=== PATIENT | male | born 1945 ===

== ENCOUNTER 2019-09-20 18:52 | Inpatient (IN) | payer MEDICARE, MEDICAID, SELFPAY ==
[2019-09-20 12:15] VITALS: BP 169/93; PULSE 101; RESP 18; TEMP 36.3; O2SAT 100
[2019-09-20 13:27] VITALS: BMI 33.1
[2019-09-20 13:30] VITALS: PULSE 80
[2019-09-20] MEDS: SODIUM CHLORIDE 0.9% IV 1,000 ML 40 ML IV CONT (13:31)
[2019-09-20 13:32] LABS: Basophils Percent Auto 0.4 % (0.2-1.2); Eosinophils Absolute Auto 0.1 K/mm3 (0-0.3); Eosinophils Percent Auto 1.5 % (0-4.4); Hematocrit 39.7 % (42.0-52.0); Hemoglobin 12.3 g/dL (14.0-18.0); Immature Granulocyte Absolute 0.01 K/mm3 (0.00-0.031); Immature Granulocyte Percent A 0.2 % (0-0.5); Lymphocytes Percent Auto 27.8 % (18.3-44.2); Mean Corpuscular Hemoglobin 28.8 pg (26-34); Mean Platelet Volume 11.2 fl (7.4-10.4); Monocytes Absolute Auto 0.4 K/mm3 (0.1-0.6); Monocytes Percent Auto 8.8 % (2.6-8.5); Neutrophils Absolute Auto 2.9 K/mm3 (1.3-6.7); Neutrophils Percent Auto 61.3 % (45.5-73.1); Platelet Count Result 182 k/mm3 (150-375); Red Blood Count 4.27 M/mm3 (4.6-6.20); White Blood Count 4.7 K/mm3 (4.5-10.0)
--- NOTE | 2019-09-20 13:34 | ADMGEN ---
This patient, Jose F Milton, was admitted to 3 [facility] Surg Room 303-01 at 1210. Patient/family oriented to hospital policies and general routines including ID bracelet, bed and alarms, visiting hours, pain management, procedures, bathroom and other care routines, personal items, smoking policy, room service/diet, and visiting hours. Valuables list has been completed. Information on how to activate the Rapid Response Team has been discussed. Patient/Family are encouraged to report perceived risks to care and to ask questions if they do not understand what they are told or what they should do.
[2019-09-20 13:45] LABS: Blood Urea Nitrogen 29 mg/dL (9-20); Calcium 8.5 mg/dL (8.4-10.2); Carbon Dioxide 24 mmol/L (22-30); Chloride 100 mmol/L (98-107); Estimated CRCL calculation 50 ml/min; Estimated Glomerular Filt Rate 50; Glucose 240 mg/dL (75-110); Potassium 4.5 mmol/L (3.4-5.0); Sodium 137 mmol/L (137-145)
[2019-09-20 14:33] VITALS: BP 136/78; PULSE 66; RESP 16; TEMP 36.7; O2SAT 99
[2019-09-20 16:00] VITALS: PULSE 90
--- NOTE | 2019-09-20 16:43 | PM.IMHP ---
H&P: HPI History of Present Illness Chief complaint: Chest wound, cellulitis Narrative: Jose F Milton is a 74 year old male 74 years old gentleman with history of hypertension, history of diabetes mellitus, and history of sick sinus syndrome status post pacemaker placement February of last year, came to the office for evaluation noted to have skin breakdown across the pacemaker, with visualization of the side of the can a density in side, slight discoloration with brown color around that spot. There is 4-5 mm opening from the skin, from which she the can of the pacemaker is seen, he has some swelling of the small area, upon squeezing that spot there is clear discharge coming out. No pain, no fever, he had the pacemaker placed back in February, at that time incision was perfect and staple removed and follow-up after that 2 times showed good healing of the scar. Apparently he stated that he gets itching at this site and sometimes he rubs it, but he had tried not to scratch it. His daughter noted discoloration yesterday and brought him to the office today. No fever no dizziness no lightheadedness Review of Systems Constitutional: Constitutional: Reports as per HPI Respiratory: Respiratory: Reports dyspnea on exertion Gastrointestinal: Gastrointestinal: Reports no additional gastrointestinal complaints PMFSH Family History Family History (Updated 09/20/19 @ 13:14 by Karuna Dean RN) Mother Diabetes mellitus Heart disease Sibling Heart disease Cancer Diabetes mellitus Social History Social History Smoking packs per day: 3 Smoking cigarettes per day: 60.0 Years smoked: 60 Smoking pack-years: 180.00 Smoking status: Current every day smoker Tobacco type: cigarettes Second hand tobacco smoke exposure: Yes Alcohol intake: current Drinks per week: 2 Substance use: never Substance use type: marijuana Last use: 09/19/2019 Gender identity (if verbalized by the patient): Male Meds Home Medications and Allergies Home Medications Medication Instructions Recorded Confirmed Type docusate sodium [Colace] 100 mg PO BID 09/20/19 09/20/19 History empagliflozin [Jardiance] 10 mg PO DAILY 09/20/19 09/20/19 History gabapentin 300 mg PO TID 09/20/19 09/20/19 History lisinopril 20 mg PO DAILY 09/20/19 09/20/19 History metformin 1,000 mg PO BID 09/20/19 09/20/19 History metoprolol succinate 50 mg PO DAILY 09/20/19 09/20/19 History sitagliptin [Januvia] 100 mg PO DAILY 09/20/19 09/20/19 History tamsulosin 0.4 mg PO DAILY 09/20/19 09/20/19 History Allergies Allergy/AdvReac Type Severity Reaction Status Date / Time No Known Allergies Allergy Unverified 03/04/19 13:11 Vital Signs Vital Signs - 24 hr 09/20/19 12:15 09/20/19 13:30 09/20/19 14:33 Temperature 36.3 C L 36.7 C Pulse Rate 101 H 80 66 Respiratory Rate 18 16 Blood Pressure 169/93 H 136/78 Pulse Oximetry 100 99 Exam Narrative: Exam Narrative: Awake alert oriented x3 not in acute distress Neck is supple no obvious JVD, no carotid bruit Chest: Good air entry bilaterally, lungs are clear to auscultation and percussion bilaterally, pacemaker site showed slight discoloration on the lateral aspect of the pacemaker can, with clear discharge noted, no tenderness, the can of the pacemaker is visualized through the opening which is 4-5 mm Cardiovascular: Regular rate and rhythm, 2/6 systolic murmur noted left sternal border Abdomen: Soft nontender bowel sounds positive Extremities: No edema has good pulses distally bilaterally H&P: Results Labs Labs: Short CBC 09/20/19 Range/Units 13:06 WBC 4.7 (4.5-10.0) K/mm3 Hgb 12.3 L (14.0-18.0) g/dL Hct 39.7 L (42.0-52.0) % Plt Count 182 (150-375) k/mm3 [facility] 09/20/19 13:06 Sodium 137 Potassium 4.5 Chloride 100 Carbon Dioxide 24 BUN 29 H Creatinine 1.40 H Glucose 240 H Calcium 8.5 Assessment and Plan Assessment and plan (1) Sick sinus s
[2019-09-20 17:45] LABS: Basophils Percent Auto 0.4 % (0.2-1.2); Eosinophils Absolute Auto 0.1 K/mm3 (0-0.3); Eosinophils Percent Auto 2.2 % (0-4.4); Hematocrit 37.9 % (42.0-52.0); Hemoglobin 11.9 g/dL (14.0-18.0); Immature Granulocyte Absolute 0.01 K/mm3 (0.00-0.031); Immature Granulocyte Percent A 0.2 % (0-0.5); Lymphocytes Absolute Auto 1.44 K/mm3 (0.9-3.2); Lymphocytes Percent Auto 31.2 % (18.3-44.2); Mean Corpuscular HGB Conc 31.4 g/dl (32-36); Mean Corpuscular Hemoglobin 29.1 pg (26-34); Mean Corpuscular Volume 92.7 fl (80-100); Mean Platelet Volume 10.8 fl (7.4-10.4); Monocytes Absolute Auto 0.5 K/mm3 (0.1-0.6); Monocytes Percent Auto 11.5 % (2.6-8.5); Neutrophils Absolute Auto 2.5 K/mm3 (1.3-6.7); Neutrophils Percent Auto 54.5 % (45.5-73.1); Platelet Count Result 171 k/mm3 (150-375); Red Blood Count 4.09 M/mm3 (4.6-6.20); White Blood Count 4.6 K/mm3 (4.5-10.0)
[2019-09-20 17:55] LABS: INR 0.9; Prothrombin Time 12.1 Seconds (11.1-14.7)
[2019-09-20 18:01] LABS: Blood Urea Nitrogen 26 mg/dL (9-20); Calcium 8.4 mg/dL (8.4-10.2); Carbon Dioxide 26 mmol/L (22-30); Chloride 104 mmol/L (98-107); Estimated CRCL calculation 58 ml/min; Estimated Glomerular Filt Rate 59; Glucose 84 mg/dL (75-110); Potassium 4.3 mmol/L (3.4-5.0); Sodium 139 mmol/L (137-145)
--- NOTE | 2019-09-20 19:15 | WPDCN ---
Assessment and Plan Assessment and plan (1) Dehiscence of incision: Code(s): T81.31XA - Disruption of external operation (surgical) wound, not elsewhere classified, initial encounter Status: Acute Assessment and Plan: Approximately 0.5 centimeter open area on the lateral aspect of the pacemaker insertion site. No obvious evidence of infection, but he will empirically be started on Ancef per Dr. Page. Cultures have been obtained and are pending. To OR tomorrow per Dr. Page. (2) History of permanent cardiac pacemaker placement: Code(s): Z95.0 - Presence of cardiac pacemaker Status: Acute Assessment and Plan: Functioning appropriately. To OR tomorrow per Dr. Page as detailed above. (3) Chronic anemia: Code(s): D64.9 - Anemia, unspecified Status: Acute Assessment and Plan: Stable on review of previous labs. (4) Hypertension: Code(s): I10 - Essential (primary) hypertension Status: Acute Assessment and Plan: Blood pressures were reviewed and they are reasonably well controlled. Continue antihypertensives and monitor closely. (5) Type 2 diabetes mellitus: Code(s): E11.9 - Type 2 diabetes mellitus without complications Status: Acute Assessment and Plan: His oral hypoglycemics will be reviewed and resumed as appropriate. Initiate sliding scale insulin, Accu-Cheks, and hypoglycemic protocol. (6) Benign prostatic hyperplasia: Code(s): N40.0 - Benign prostatic hyperplasia without lower urinary tract symptoms Status: Acute Assessment and Plan: Continue tamsulosin. Patient does straight cath 4 times a day. HPI Data of Consult Date/Time: 09/20/191914 Requesting Physician: Andrés Page MD Primary Care Provider: LEONORA,BOBBY Rich M.D. Consult Narrative Narrative: Jose F Milton is a pleasant 74-year-old male with sick sinus syndrome status post permanent pacemaker insertion, hypertension, and diabetes whom the hospitalist service has been consulted for medical management. Pacemaker was placed in February 2019 and has been working without issue since that time. Over the past couple of weeks, he developed pruritus about the incision site. He has avoid scratching the area, but admits to rubbing the area to help with the itching. Today he noticed a small area of skin breakdown, exposing a small amount of the pacemaker. He was seen by Dr. Page in the office, and was directly admitted today for IV antibiotics with plans for pocket revision or removal and reimplantation tomorrow. The patient feels well and has not had any recent illnesses. He denies fever, chills, and sweats. He has not had chest pain or shortness of breath. No nausea or vomiting. No history of MRSA. He believes his diabetes is fairly well controlled, with glucose rarely above 150. Review of Systems Review of Systems: All systems reviewed & are unremarkable except as noted in HPI and below PMFSH Past Medical History Medical History (Updated 09/20/19 @ 22:11 by Ghada Sánchez PA-C) Benign prostatic hyperplasia With obstructive uropathy. The patient does self catheterization 4 times a day. Chronic anemia Hypertension Osteoarthritis Sick sinus syndrome Status post permanent pacemaker insertion in February 2019. Type 2 diabetes mellitus Surgical History Surgical History (Updated 09/20/19 @ 22:09 by Ghada Sánchez PA-C) History of permanent cardiac pacemaker placement [address] Andrés Page. Family History Family History Mother Diabetes mellitus Heart disease Sibling Heart disease Cancer Diabetes mellitus Social History Social History (Updated 09/20/19 @ 22:07 by Ghada Sánchez PA-C) Social History: The patient lives with his in the [place]. He is retired. He desig
[2019-09-20] MEDS: lisinopriL 20 MG TABLET PO (19:16)
[2019-09-20] MEDS: TAMSULOSIN HCL 0.4 MG CAPSULE PO (19:17)
[2019-09-20] MEDS: metFORMIN HCL 500 MG TABLET 1000 MG PO (19:17)
[2019-09-20] MEDS: METOPROLOL SUCCINATE EXT REL 50 MG TABCR PO (19:17)
[2019-09-20 20:00] VITALS: PULSE 78
[2019-09-20 22:00] VITALS: BP 158/81; PULSE 72; RESP 18; TEMP 36.6; O2SAT 97
[2019-09-20] MEDS: GABAPENTIN 300 MG CAPSULE PO (22:17)
[2019-09-20] MEDS: DOCUSATE SODIUM 100 MG CAPSULE PO (22:17)
[2019-09-21] VITALS: PULSE 79
[2019-09-21 04:00] VITALS: PULSE 75
[2019-09-21] MEDS: GABAPENTIN 300 MG CAPSULE PO (05:35)
[2019-09-21 06:00] VITALS: BP 142/97; PULSE 78; RESP 16; TEMP 36.4; O2SAT 95
[2019-09-21 06:30] LABS: Hematocrit 36.2 % (42.0-52.0); Hemoglobin 11.5 g/dL (14.0-18.0); Mean Corpuscular HGB Conc 31.8 g/dl (32-36); Mean Corpuscular Hemoglobin 28.7 pg (26-34); Mean Corpuscular Volume 90.3 fl (80-100); Mean Platelet Volume 10.6 fl (7.4-10.4); Platelet Count Result 159 k/mm3 (150-375); Red Blood Count 4.01 M/mm3 (4.6-6.20); Red Cell Distribution Width 14.8 % (11.5-14.5); White Blood Count 3.5 K/mm3 (4.5-10.0)
[2019-09-21 06:42] LABS: Blood Urea Nitrogen 19 mg/dL (9-20); Calcium 8.4 mg/dL (8.4-10.2); Carbon Dioxide 27 mmol/L (22-30); Chloride 106 mmol/L (98-107); Estimated CRCL calculation 58 ml/min; Estimated Glomerular Filt Rate 59; Glucose 96 mg/dL (75-110); Sodium 140 mmol/L (137-145)
[2019-09-21 06:45] LABS: Hemoglobin A1C 6.2 % (<5.7)
[2019-09-21 07:41] VITALS: PULSE 78; RESP 16; O2SAT 95
[2019-09-21 08:00] VITALS: PULSE 60
[2019-09-21] MEDS: METOPROLOL SUCCINATE EXT REL 50 MG TABCR PO (09:07)
[2019-09-21] MEDS: lisinopriL 20 MG TABLET PO (09:07)
[2019-09-21] MEDS: DOCUSATE SODIUM 100 MG CAPSULE PO (09:07)
[2019-09-21] MEDS: TAMSULOSIN HCL 0.4 MG CAPSULE PO (09:13)
--- NOTE | 2019-09-21 10:33 | PM.IMCN ---
Assessment and Plan Assessment and plan (1) Dehiscence of incision: Qualifiers: Encounter type: subsequent encounter Qualified Code(s): T81.31XD - Disruption of external operation (surgical) wound, not elsewhere classified, subsequent encounter Code(s): T81.31XA - Disruption of external operation (surgical) wound, not elsewhere classified, initial encounter Status: Acute Assessment and Plan: Patient has approximately 5 mm opening at the pacemaker insertion site which allows visualization of the lateral edge of the pacemaker. There is scant serous discharge but without odor or pus. No obvious signs of infection. Patient is not febrile and vitals are stable. Preliminary wound cultures of chest from 09/20 reveal no organisms or WBC. - Continue Ancef per Dr. Page - OR today per Dr. Page (2) History of permanent cardiac pacemaker placement: Code(s): Z95.0 - Presence of cardiac pacemaker Status: Acute Assessment and Plan: Pacemaker is functioning properly. Heart rate stable at 60. - OR today per Dr. Page (3) Chronic anemia: Code(s): D64.9 - Anemia, unspecified Status: Acute Assessment and Plan: Hgb is 11.5 and Hct is 36.2 today. Per review of prior visits, anemia is at baseline. There is no sign of active bleeding and vitals are stable. Patient denies epistaxis, hematuria, melena, and hematochezia. - Continue to monitor H&H and transfuse prn. (4) Hypertension: Qualifiers: Hypertension type: essential hypertension Qualified Code(s): I10 - Essential (primary) hypertension Code(s): I10 - Essential (primary) hypertension Status: Acute Assessment and Plan: Blood pressure evaluated today and elevated but stable at 142/97. Appears to be at baseline. - Continue home dose of metoprolol and lisinopril - Continue to monitor pressures closely (5) Type 2 diabetes mellitus: Qualifiers: Diabetes mellitus nursing home insulin use: without nursing home use Code(s): E11.9 - Type 2 diabetes mellitus without complications Status: Acute Assessment and Plan: Blood sugars have been well controlled while hospitalized and the patient has not required corrective insulin. Blood sugar stable today at 96. - Oral hypoglycemics will be resumed when appropriate - Continue moderate dose sliding scale insulin, accu-checks and hypoglycemic protocol (6) Benign prostatic hyperplasia: Qualifiers: Lower urinary tract symptom presence: symptoms present Code(s): N40.0 - Benign prostatic hyperplasia without lower urinary tract symptoms Status: Acute Assessment and Plan: Patient straight caths 4 times daily. He denies urinary issues at this time. - Continue tamsulosin HPI Data of Consult Consult date: 09/21/19 Requesting Physician: Danielle Caruso PA-C Primary Care Provider: LEONORA,BOBBY Rich M.D. Consult Narrative Narrative: Date of service: 09/21/2019 Jose F Milton is a 74 year old male with a history of sick sinus syndrome s/p permanent pacemaker implant in February 2019, hypertension, BPH, non-insulin dependent DM, and chronic anemia who is hospitalized for dehiscence of incision at the site of his pacemaker. He is scheduled for surgery with Dr. Page today for removal and possible reimplantation or possibly a new pacemaker implant. He reports he is feeling well today and he is in good spirits. His only complaint is that he is hungry but understands he cannot eat prior to procedure. He denies pain at the incision site and says he hasn't been scratching or rubbing. It is currently bandaged with gauze and tape. He denies fevers, chills, dizziness, or lightheadedness. Review of Systems Review of Systems: Narrative: A 12 point review of systems was reviewed and unremarkable except as noted in HPI and below Constitutional: no weakness, no fatigue, no fev
[2019-09-21] MEDS: SODIUM CHLORIDE 0.9% IV 1,000 ML 40 ML IV CONT (12:07)
[2019-09-21 12:34] LABS: Glucose Point of Care 87 (65-105)
--- NOTE | 2019-09-21 13:46 | WPDMODSED ---
Moderate Sedation Note-Pt Data Patient Data Allergies Allergy/AdvReac Type Severity Reaction Status Date / Time No Known Allergies Allergy Unverified 03/04/19 13:11 Home Medications Medication Instructions Recorded Confirmed Type docusate sodium [Colace] 100 mg PO BID 09/20/19 09/20/19 History empagliflozin [Jardiance] 10 mg PO DAILY 09/20/19 09/20/19 History gabapentin 300 mg PO TID 09/20/19 09/20/19 History lisinopril 20 mg PO DAILY 09/20/19 09/20/19 History metformin 1,000 mg PO BID 09/20/19 09/20/19 History metoprolol succinate 50 mg PO DAILY 09/20/19 09/20/19 History sitagliptin [Januvia] 100 mg PO DAILY 09/20/19 09/20/19 History tamsulosin 0.4 mg PO DAILY 09/20/19 09/20/19 History Current Medications: Active Medications Dextrose (Dextrose 50% Syringe) 12.5 gm IV PUSH PRN PRN; Protocol PRN Reason: Hypoglycemia Docusate Sodium (Colace Capsule) 100 mg PO Q12HR [facility] Last Admin: 09/21/19 09:07 Dose: 100 mg Documented by: Gabapentin (Neurontin) 300 mg PO Q8HR [facility] Last Admin: 09/21/19 05:35 Dose: 300 mg Documented by: Glucagon (Glucagon For Inj) 1 mg IM PRN PRN; Protocol PRN Reason: Hypoglycemia Glucose (Glutose 15) 15 gm PO PRN PRN; Protocol PRN Reason: Hypoglycemia Cefazolin Sodium (Ancef 1 Gm/D5w 50 Ml Pm) 1 gm in 50 mls @ 100 mls/hr IVPB Q8HR [facility] Last Admin: 09/21/19 05:36 Dose: 100 mls/hr Documented by: Sodium Chloride (Normal Saline Iv) 1,000 mls @ 40 mls/hr IV CONT .Q24H [facility] Last Admin: 09/21/19 12:07 Dose: 40 mls/hr Documented by: Dextrose (Dextrose 5% 1,000 Ml) 1,000 mls @ 100 mls/hr IVPB PRN PRN; Protocol PRN Reason: Hypoglycemia Insulin Aspart (Novolog) 3 - 6 units SUB-Q TIDWM [facility]; Protocol Last Admin: 09/21/19 12:09 Dose: Not Given Documented by: Lisinopril (Prinivil) 20 mg PO DAILY [facility] Last Admin: 09/21/19 09:07 Dose: 20 mg Documented by: Metformin HCl (Glucophage) 1,000 mg PO BID [facility] Last Admin: 09/20/19 19:17 Dose: 1,000 mg Documented by: Metoprolol Succinate (Toprol Xl) 50 mg PO DAILY [facility] Last Admin: 09/21/19 09:07 Dose: 50 mg Documented by: Non-Formulary Medication (Empagliflozin [Jardiance]) 10 mg PO DAILY [facility] Stop: 10/21/19 09:01 Sitagliptin Phosphate (Januvia) 100 mg PO DAILY [facility] Last Admin: 09/20/19 19:16 Dose: 100 mg Documented by: Tamsulosin HCl (Flomax) 0.4 mg PO DAILY [facility] Last Admin: 09/21/19 09:13 Dose: 0.4 mg Documented by: Sedation/Anesthesia: No previous sedation/anesthesia problems (including family history). [facility] Past Medical History Medical History (Updated 09/21/19 @ 11:08 by Danielle Caruso PA-C) Benign prostatic hyperplasia With obstructive uropathy. The patient does self catheterization 4 times a day. Chronic anemia Hypertension Osteoarthritis Sick sinus syndrome Status post permanent pacemaker insertion in February 2019. Type 2 diabetes mellitus Surgical History Surgical History (Updated 09/20/19 @ 22:09 by Ghada Sánchez PA-C) History of permanent cardiac pacemaker placement February [address] Andrés Page. Family History Family History Mother Diabetes mellitus Heart disease Sibling Heart disease Cancer Diabetes mellitus Social History Social History (Updated 09/20/19 @ 22:07 by Ghada Sánchez PA-C) Social History: The patient lives with his in the [place]. He is retired. He designates his as his surrogate decision maker and he wishes to be a full code. He has smoked a pack of cigarettes every 3 days for about 60 years, but now smokes about 2 to 3 cigarettes a day. He drinks Sumeet Ng on the weekends. Occasional marijuana use. Years smoked: 60 Smoking status: Current every day smoker Tobacco type: cigarettes Second hand tobacco smoke exposure: Yes Alcohol intake: current Drinks per week: 2 Substance use: never Substance use type: marijuana Last use: 09/19/2019 Gender iden
[2019-09-21 14:33] VITALS: BP 151/100; PULSE 81; RESP 16; TEMP 36.7; O2SAT 96
--- NOTE | 2019-09-21 14:43 | PM.PNCARD ---
Progress Note: A&P Assessment and Plan (1) Sick sinus syndrome due to SA node dysfunction: Code(s): I49.5 - Sick sinus syndrome Status: Acute (2) Hypertension: Qualifiers: Hypertension type: essential hypertension Qualified Code(s): I10 - Essential (primary) hypertension Code(s): I10 - Essential (primary) hypertension Status: Acute (3) Diabetes mellitus: Code(s): E11.9 - Type 2 diabetes mellitus without complications Status: Inactive (4) History of permanent cardiac pacemaker placement: Code(s): Z95.0 - Presence of cardiac pacemaker Status: Acute Assessment and Plan: Pacemaker is working appropriately, but due to the fact that the can is exposed, which is high risk for infection, it has to be removed, possibly reimplanted at different location, I made arrangements for him to see Dr. Javier at [facility], previously known at [place], for removal of the current pacemaker and a getting a new 1 (5) Pacemaker infection: Code(s): T82.7XXA - Infection and inflammatory reaction due to other cardiac and vascular devices, implants and grafts, initial encounter Status: Acute Assessment and Plan: He had skin breakdown on the side of the pacemaker, with pacemaker can exposed, is no fever, no signs of active infection, however since the can was exposed, the pacemaker needs to be removed. Subjective Date/time seen: 09/21/19 14:43 Feels okay today, no chest pain no fever pacer site looks about the same clear discharge, after discussion with other liner reroll tender it was decided that he would be better off going to [facility] for pacemaker and lead extraction and subsequently reimplant. With that in mind will plan on discharging him home on oral antibiotics to have a visit with Dr. Javier at [facility] Exam Narrative: Exam Narrative: Awake alert oriented x3 not in acute distress Neck is supple no obvious JVD, no carotid bruit Chest: Good air entry bilaterally, lungs are clear to auscultation and percussion bilaterally, pacemaker site showed slight discoloration on the lateral aspect of the pacemaker can, with clear discharge noted, no tenderness, the can of the pacemaker is visualized through the opening which is 4-5 mm Cardiovascular: Regular rate and rhythm, 2/6 systolic murmur noted left sternal border Abdomen: Soft nontender bowel sounds positive Extremities: No edema has good pulses distally bilaterally Objective Data Vital Signs Vital Signs: Vital Signs - 24 hr 09/20/19 16:00 09/20/19 20:00 09/20/19 22:00 Temperature 36.6 C Pulse Rate 90 78 72 Respiratory Rate 18 Blood Pressure 158/81 H Pulse Oximetry 97 09/21/19 00:00 09/21/19 04:00 09/21/19 06:00 Temperature 36.4 C Pulse Rate 79 75 78 Respiratory Rate 16 Blood Pressure 142/97 H Pulse Oximetry 95 09/21/19 07:41 09/21/19 08:00 09/21/19 14:33 Temperature 36.7 C Pulse Rate 78 60 81 Respiratory Rate 16 16 Blood Pressure 151/100 H Pulse Oximetry 95 96 Intake/Output Intake/Output: Intake & Output 09/18/19 09/19/19 09/20/19 09/21/19 23:59 23:59 23:59 23:59 Intake Total 540 1000 Output Total 0 Balance 540 1000 Meds/Results Medications: Active Medications Generic Name Dose Route Start Last Admin Trade Name Freq PRN Reason Stop Dose Admin Dextrose 12.5 gm 09/20/19 22:12 Dextrose 50% Syringe IV PUSH PRN PRN Hypoglycemia Protocol Docusate Sodium 100 mg 09/20/19 21:00 09/21/19 09:07 Colace Capsule PO 100 mg Q12HR [facility] Administration Gabapentin 300 mg 09/20/19 22:00 09/21/19 05:35 Neurontin PO 300 mg Q8HR [facility] Administration Glucagon 1 mg 09/20/19 22:12 Glucagon For Inj IM PRN PRN Hypoglycemia Protocol Glucose 15 gm 09/20/19 22:12 Glutose 15 PO PRN PRN Hypoglycemia Protocol Cefazolin Sodium 1 gm in 50 mls @ 100
--- NOTE | 2019-09-21 14:49 | PM.DS ---
DS: Diagnosis Admitting Diagnosis Admitting Diagnosis: Disruption of external operation (surgical) wound, not elsewhere classified, initial encounter Discharge Diagnosis (1) Sick sinus syndrome due to SA node dysfunction: Code(s): I49.5 - Sick sinus syndrome Status: Acute (2) Hypertension: Qualifiers: Hypertension type: essential hypertension Qualified Code(s): I10 - Essential (primary) hypertension Code(s): I10 - Essential (primary) hypertension Status: Acute (3) Diabetes mellitus: Code(s): E11.9 - Type 2 diabetes mellitus without complications Status: Inactive (4) History of permanent cardiac pacemaker placement: Code(s): Z95.0 - Presence of cardiac pacemaker Status: Acute Assessment and Plan: Pacemaker is working appropriately, but due to the fact that the can is exposed, which is high risk for infection, it has to be removed, possibly reimplanted at different location, I made arrangements for him to see Dr. Javier at [facility], previously known at [place], for removal of the current pacemaker and a getting a new 1 (5) Pacemaker infection: Code(s): T82.7XXA - Infection and inflammatory reaction due to other cardiac and vascular devices, implants and grafts, initial encounter Status: Acute Assessment and Plan: He had skin breakdown on the side of the pacemaker, with pacemaker can exposed, is no fever, no signs of active infection, however since the can was exposed, the pacemaker needs to be removed. DS: Summary Time Spent with Patient Time attestation: Total time spent providing and/or coordinating discharge services: Exam Narrative: Exam Narrative: Awake alert oriented x3 not in acute distress Neck is supple no obvious JVD, no carotid bruit Chest: Good air entry bilaterally, lungs are clear to auscultation and percussion bilaterally, pacemaker site showed slight discoloration on the lateral aspect of the pacemaker can, with clear discharge noted, no tenderness, the can of the pacemaker is visualized through the opening which is 4-5 mm Cardiovascular: Regular rate and rhythm, 2/6 systolic murmur noted left sternal border Abdomen: Soft nontender bowel sounds positive Extremities: No edema has good pulses distally bilaterally DS: Data Data Completed and Pending Labs on day of discharge: Labs from last 24 hours 09/21/19 09/21/19 09/21/19 12:05 05:45 05:45 WBC RBC Hgb Hct MCV MCH MCHC RDW Plt Count MPV Immature Gran % (Auto) Neut % (Auto) Lymph % (Auto) [place] % (Auto) Eos % (Auto) Baso % (Auto) Lymph # (Auto) [place] # (Auto) Eos # (Auto) Baso # (Auto) Abs Immat Gran (auto) Absolute Neuts (auto) Absolute Nucleated RBC Nucleated RBC % PT INR Sodium 140 Potassium 4.0 Chloride 106 Carbon Dioxide 27 BUN 19 Creatinine 1.20 Estim Creat Clear Calc 58 Estimated GFR 59 Glucose 96 POC Capillary Glucose 87 Hemoglobin A1c 6.2 H Calcium 8.4 09/21/19 09/20/19 09/20/19 05:45 17:40 17:40 WBC 3.5 L RBC 4.01 L Hgb 11.5 L Hct 36.2 L MCV 90.3 MCH 28.7 MCHC 31.8 L RDW 14.8 H Plt Count 159 MPV 10.6 H Immature Gran % (Auto) Neut % (Auto) Lymph % (Auto) [place] % (Auto) Eos % (Auto) Baso % (Auto) Lymph # (Auto) [place] # (Auto) Eos # (Auto) Baso # (Auto) Abs Immat Gran (auto) Absolute Neuts (auto) Absolute Nucleated RBC Nucleated RBC % PT 12.1 INR 0.9 Sodium 139 Potassium 4.3 Chloride 104 Carbon Dioxide 26 BUN 26 H Creatinine 1.20 Estim Creat Clear Calc 58 Estimated GFR 59 Glucose 84 POC Capillary Glucose Hemoglobin A1c Calcium 8.4 09/20/19 17:40 WBC 4.6 RBC 4.09 L Hgb 11.9 L Hct 37.9 L MCV 92.7 MCH 29.1 MCHC 31.4 L RDW 15.0 H Plt Count 171 MPV 10.8
--- NOTE | 2019-09-21 15:34 | PC.NURSE ---
CALLED SCRIPT FOR KEFLEX 500 MG Q8 HRS #25 TO [facility] IN [facility] [phone]
== END 2019-09-21 15:40 | disposition home or self-care (01) | DRG 921 ==
PROVIDERS: Physician Assistant; Admitting Provider Specialist; PCP Family Medicine; Visit Provider Physician Assistant
DX: T81.31XA Disruption of external operation (surgical) wound, not elsewhere classified, initial encounter (principal); I49.5 Sick sinus syndrome; I10 Essential (primary) hypertension; E11.9 Type 2 diabetes mellitus without complications; F17.210 Nicotine dependence, cigarettes, uncomplicated; D64.9 Anemia, unspecified; N40.0 Benign prostatic hyperplasia without lower urinary tract symptoms; N40.1 Benign prostatic hyperplasia with lower urinary tract symptoms; N13.9 Obstructive and reflux uropathy, unspecified; M19.90 Unspecified osteoarthritis, unspecified site; Z95.0 Presence of cardiac pacemaker
CPT/HCPCS: 36415; 80048; 83036; 85025; 85027; 85610; 87070; 87205; A9270; J0690; J7030; J7040